=== PATIENT | female | born 2000 | race Caucasian/White ===

== ENCOUNTER 2021-12-01 20:01 | Emergency (ER) | payer BC, SELFPAY ==
[2021-12-01 20:02] VITALS: BP 115/68; PULSE 71; RESP 16; TEMP 36.3; O2SAT 100; BMI 25.0
--- NOTE | 2021-12-01 22:17 | EX.ED.DYSGE1 ---
HPI History of Present Illness Chief Complaint: Head Injury Informant: patient Narrative Narrative: Patient is a 21-year-old female with no significant past medical history presenting after a fall. Patient slipped on the ice this morning around 7 AM. She states she was walking from her apartment and crossing the grass and then onto the sidewalk. When her foot hit the sidewalk she lost her balance and fell backwards. Her head hit the grass. She denies any loss of consciousness. Throughout the day she has had worsening neck and back/shoulder pain. She also notes that she had a hard time concentrating in class and was having some light sensitivity. At one point she felt a little nauseous but that resolved with rest. She denies any history of concussion. She is on any blood thinners. Denies any other injuries or complaints. Currently denies any headache. No other complaints at this time. [facility] Medical History Head injury Home Medications cyclobenzaprine 10 mg PO TID PRN #14 tab 12/01/21 [Rx Last Taken Unknown] ibuprofen 600 mg PO Q6H PRN PRN #20 tab 12/01/21 [Rx Last Taken Unknown] Allergy/AdvReac Type Severity Reaction Status Date / Time No Known Allergies Allergy Verified 12/01/21 20:04 Social History Smoking Status: Never smoker ROS ROS ED Constitutional Constitutional ED: Denies chills or fever(s) Eyes Eyes: Reports blurry vision ENT ENT ED: Denies ear pain, rhinorrhea or sore throat Cardiovascular Cardiovascular: Denies chest pain Respiratory/Chest Respiratory/Chest: Denies cough or dyspnea Gastrointestinal Gastrointestinal: Reports nausea; Denies abdominal pain or vomiting Musculoskeletal Musculoskeletal: Reports back pain and neck pain; Denies arthralgias or myalgias Integumentary Denies Abrasions or rash Neurologic Neurologic: Denies headache(s), paresthesias or weakness EXAM Physical Exam Const Vital Signs: 12/01/21 20:02 Temperature 97.3 F L Temperature Source Temporal Pulse Rate 71 Respiratory Rate 16 Blood Pressure 115/68 Blood Pressure Mean 83 Pulse Ox 100 Oxygen Delivery Method Room Air Positive well nourished and well developed General Appearance ED: well developed HEENT Reports TM's clear and moist mucous membranes HEENT Narrative: No palpable skull fracture. No cephalhematoma appreciated. Negative for trauma or tenderness Tympanic Membrane ED: Yes TM's clear Eyes PERRL and EOMs intact bilaterally Neck No no lymphadenopathy and supple Neck Narrative: No midline tenderness, no step-off sign. Patient has bilateral paraspinal cervical tenderness as well as tenderness at the occiput at the paraspinal muscle insertion site. General: tenderness Chest Wall inspection of chest normal Resp normal respiratory effort and clear to auscultation bilaterally Cardio regular rate, regular rhythm and no murmurs GI normal to inspection, nondistended, normoactive bowel sounds Back/Spine Back/Spine Narrative: Bilateral mild upper thoracic paraspinal tenderness as well as bilateral mild trapezius tenderness. No midline tenderness. No step-off sign. Normal range of motion of the spine. Extremity normal to inspection General Extremety ED: Negative for edema or tenderness General Extremity: Negative for edema Neuro oriented x3 and CN's II-XII intact bilaterally Sensorium / Orientation: alert Psych mental status grossly normal Mood & Affect: Negative for depressed Skin no rashes or lesions noted and no wounds MDM MDM MDM Narrative Medical decision making narrative: Patient evaluated for closed head injury. No loss of consciousness. No signs of trauma on physical exam. Does have some mild cervical paraspinal and trapezius tenderness. I suspect she has strain from the fall. She might have a mild concussion as well given her reported difficulty concentrating, blurry vision and nausea when she was trying to schoolwork earlier today. Is given a dose of Flexeril and Motrin in the ER as her friend is driving. Patient does not think she is . I do not think head imaging is indicated given her presentation today, normal neurologic exam and mechanism of injury. No concerns for acute cervical or thoracic fracture either. Patient is hemodynamically stable in the ER. Is given a PCP in the area for outpatient follow-up as she is from an hour away and is a college student in the area. Patient is counseled on signs and symptoms requiring return to the emergency room. Patient verbalizes agreement and understand this plan. Patient discharged home in stable and improved condition. Discharge Plan Triage Chief Complaint: Head Injury ED Provider: Nory Jewell Dx/Rx/DC Orders Instructions: Whiplash, ED Head Injury (Adult), ED Neck Sprain or Strain Prescriptions: New ibuprofen [ibuprofen] 600 MG tablet 600 mg PO Q6H PRN PRN (Reason: Pain Score 1-10/10) Qty: 20 RF: 0 cyclobenzaprine 10 mg tablet 10 mg PO TID PRN (Reason: muscle spasm) Qty: 14 RF: 0 Primary Care Provider: Care Physician,No Primary Referrals: Brannon Bryan MD [STAFF PHYSICIAN] - Care Physician,No Primary [Primary Care Provider] - Disposition Disposition: Home, Self Care
[2021-12-01] MEDS: Ibuprofen 600 MG Tablet PO (22:33)
[2021-12-01] MEDS: cycloBENZAPRine HCl 10 MG Tablet PO (22:33)
[2021-12-01 22:37] VITALS: RESP 18
== END 2021-12-01 22:37 | disposition home or self-care (01) ==
PROVIDERS: Emergency Provider Emergency Medicine; Visit Provider Emergency Medicine
DX: M54.9 Dorsalgia, unspecified (principal); M25.519 Pain in unspecified shoulder; S09.90XA Unspecified injury of head, initial encounter; W00.0XXA Fall on same level due to ice and snow, initial encounter
CPT/HCPCS: 99283